=== PATIENT | female | born 1970 | race Two or more races ===

== ENCOUNTER 2021-08-03 08:02 | Day surgery (SDC) | payer OTHER ==
[~2021-08-03 08:02] MED LIST: ATACAND4 MG PO; DIOVAN PO; MELATONIN10 M2 PO; SYNTHROID100 MCG PO; ULTRACET PO
== END 2021-08-03 17:15 | disposition home or self-care (01) ==
LOC: CIR.AMB 08:02
PROVIDERS: ATTEND Orthopaedic Surgery
DX: M75.122 Complete rotator cuff tear or rupture of left shoulder, not specified as traumatic (principal); M75.22 Bicipital tendinitis, left shoulder